=== PATIENT | female | born 1955 | race Caucasian/White ===

== ENCOUNTER → 2019-09-17 07:07 | Outpatient (CLI) | payer OTHER, SELFPAY ==
--- NOTE | ~2019-09-17 | MM_ITS ---
EXAMINATION: MM screening bessy BI w jorge alberto HISTORY: Screening mammogram TECHNIQUE: Craniocaudal and mediolateral oblique 3-D tomosynthesis images were obtained and synthetic 2-D images were generated. CAD analysis was submitted and interpreted. COMPARISON: bilateral diagnostic digital mammogram 04/03/2013 bilateral digital screening mammogram BREAST PARENCHYMAL COMPOSITION: There are scattered areas of fibroglandular density. FINDINGS: 3.7 x 7 mm stable circumscribed opacity in the upper outer quadrant of the right breast pos teriorly, likely a benign intramammary lymph node. 3.5 x 4.9 mm stable circumscribed low-density opacity in the posterior aspect of the upper outer quad rant of the left breast, likely a benign intramammary lymph node as well. There is no evidence of suspicious mass, calcification, or architectural distortion to suggest malign paco in either breast. There has been no suspicious interval change. IMPRESSION: 1. No mammographic evidence of malignancy. 2. Recommend routine screening mammography in one year. BI-RADS Category 2: Benign finding(s). Reviewed, dictated and finalized at location A. KO KOHANGA REO
== END ==
PROVIDERS: Visit Provider Family Medicine Adolescent Medicine
DX: Z12.31 Encounter for screening mammogram for malignant neoplasm of breast (principal)
CPT/HCPCS: 77063; 77067

== ENCOUNTER 2020-09-18 10:42 | Outpatient (CLI) | payer OTHER, SELFPAY | END 2020-09-18 10:43 | disposition home or self-care (01) | LOC: ANHCOVIDVC 10:43 | DX: Z23 Encounter for immunization (principal) | CPT/HCPCS: 0001A; 91300 ==

== ENCOUNTER 2020-10-09 10:41 | Outpatient (CLI) | payer OTHER, SELFPAY | END 2020-10-09 10:42 | disposition home or self-care (01) | LOC: ANHCOVIDVC 10:41 | DX: Z23 Encounter for immunization (principal) | CPT/HCPCS: 0002A; 91300 ==

== ENCOUNTER 2021-03-31 02:03 | Day surgery (SDC) | payer OTHER, SELFPAY ==
[2021-03-23 14:03] VITALS: BMI 39.7
--- NOTE | 2021-03-30 12:22 | WPDANESEPPF ---
Anes - Initial Pre Proc Eval Procedure: Operation Date: 03/31/21 08:30 Proposed Procedures p Screening Colonoscopy - Sam Delacruz MD Date/Time: 03/30/21 12:22 Surgeon: Sam Delacruz MD Pre Op Diagnosis: neoplasm screening Z12.11 Patient Data Age: 65 Gender: F Height: 1.63 m Weight: 105 kg Allergies Allergy/AdvReac Type Severity Reaction Status Date / Time codeine Allergy Unknown hives Verified 03/31/21 07:47 Sulfa (Sulfonamide Allergy Unknown Hives Verified 03/31/21 07:47 Antibiotics) Home Medications Medication Instructions Recorded Confirmed Type fenofibrate 160 mg tablet 160 mg PO DAILY 02/18/21 03/23/21 History fluoxetine 10 mg capsule 10 mg PO DAILY 02/18/21 03/23/21 History lisinopril 10 mg tablet 10 mg PO DAILY 02/18/21 03/23/21 History Patient hx anesthesia problems: none Family hx anesthesia problems: none PMFSH Past Medical History Medical History (Updated 03/31/21 @ 08:15 by Sam Delacruz MD) Asthma Colon cancer screening GERD (gastroesophageal reflux disease) Hyperlipidemia Hypertension Family History Family History Father Alcoholism Diabetes mellitus Hypertension Mother Hypertension Depression Cerebrovascular accident Thyroid disorder Other Asthma Grandparent FHx: kidney cancer Social History Social History Smoking status: Never smoker Alcohol intake: current Alcohol use details: 3 Substance use: never Substance use type: does not use Living arrangements: with family Spiritual care concerns: No Anes - Eval Final PreProcedure Day of Procedure 03/30/21 12:22 Patient weight: obese Heart: regular rate and rhythm Lungs: clear to auscultation and normal air movement Airway: Mallampati scale class II Neurological: alert and oriented Last oral intake: >/= 8 hours ASA classification: III Emergent: no Anesthetic plan: proceed Anesthesia type and monitoring: general GIVS and standard monitoring Informed Consent: The patient's anesthetic plan and its attendant risks and benefits were discussed with the patient/family/POA. Questions were solicited and answers provided to the satisfaction of the patient/family/POA.
[2021-03-31 07:48] VITALS: BP 149/79; PULSE 78; RESP 14; TEMP 36.1; O2SAT 94; BMI 38.4
[2021-03-31] MEDS: LACTATED RINGERS 1,000 ML 150 ML IV CONT (08:02)
--- NOTE | 2021-03-31 08:15 | PM.HPGS ---
History of Present Illness History of Present Illness Consent: Risks, benefits, and alternatives have been discussed and questions answered. Patient agrees to proceed with procedure. Chief complaint: neoplasm screening Z12.11 Narrative: Layla Walter is a 65 year old female here for first screening colonoscopy Review of Systems Constitutional: Constitutional: Denies headache(s) and Denies weakness Eyes: Eyes: Denies blurry vision ENT: Reports Normal hearing present, Denies headache(s) and Denies neck pain Cardiovascular: Cardiovascular: Denies chest pain and Denies dyspnea Respiratory: Respiratory: Denies dyspnea Gastrointestinal: Gastrointestinal: Reports no additional gastrointestinal complaints Genitourinary: Genitourinary: Denies dysuria Musculoskeletal: Musculoskeletal: Denies neck pain Integumentary/Breasts: Skin/Breast: Denies dry skin Neurologic: Reports Normal hearing present, Denies headache(s) and Denies weakness Psychiatric: Psychiatric: Denies anxiety Endocrine: Endocrine: Denies change in body appearance Hematologic/Lymphatic: Hematologic/Lymphatic: Denies easy bleeding Allergic/Immunologic: Allergic/Immunologic: Denies urticaria PMFSH Past Medical History Medical History (Updated 03/31/21 @ 08:15 by Sam Delacruz MD) Asthma Colon cancer screening GERD (gastroesophageal reflux disease) Hyperlipidemia Hypertension Family History Family History Father Alcoholism Diabetes mellitus Hypertension Mother Hypertension Depression Cerebrovascular accident Thyroid disorder Other Asthma Grandparent FHx: kidney cancer Social History Social History Smoking status: Never smoker Alcohol intake: current Alcohol use details: 3 Substance use: never Substance use type: does not use Living arrangements: with family Spiritual care concerns: No Meds Home Medications and Allergies Home Medications Medication Instructions Recorded Confirmed Type fenofibrate 160 mg tablet 160 mg PO DAILY 02/18/21 03/23/21 History fluoxetine 10 mg capsule 10 mg PO DAILY 02/18/21 03/23/21 History lisinopril 10 mg tablet 10 mg PO DAILY 02/18/21 03/23/21 History Allergies Allergy/AdvReac Type Severity Reaction Status Date / Time codeine Allergy Unknown hives Verified 03/31/21 07:47 Sulfa (Sulfonamide Allergy Unknown Hives Verified 03/31/21 07:47 Antibiotics) Vital Signs Vital Signs - 24 hr 03/31/21 07:48 Temperature 97 F L Pulse Rate 78 Respiratory Rate 14 Blood Pressure 149/79 H Pulse Oximetry 94 Exam Const: General: comfortable and no acute distress HENMT: General nose exam: Normal nares present Eyes: General: appearance normal, both eyes and all related structures Neck: Neck: no JVD Resp: Auscultation: clear to auscultation bilaterally Cardio: Rate: regular rate Rhythm: regular rhythm GI: Inspection: non-distended GI Palp: Yes Soft to palpation Skin: General skin exam: normal color Neuro: General: gait normal Speech: normal speech Extrem: General: normal to inspection Psych: Mental Status: mental status grossly normal Assessment and Plan Assessment and plan (1) Colon cancer screening: Code(s): Z12.11 - Encounter for screening for malignant neoplasm of colon Status: Acute Assessment and Plan: colonoscopy
[2021-03-31 08:39] VITALS: BP 124/75; PULSE 65; RESP 21; O2SAT 96
[2021-03-31 08:49] VITALS: BP 135/85; PULSE 70; RESP 20; O2SAT 99
[2021-03-31 08:59] VITALS: BP 131/79; PULSE 63; RESP 18; O2SAT 98
== END 2021-03-31 09:08 | disposition home or self-care (01) ==
PROVIDERS: PCP Family Medicine Adolescent Medicine; Visit Provider Internal Medicine Gastroenterology
PROC: 0DJD8ZZ Inspection of Lower Intestinal Tract, Via Natural or Artificial Opening Endoscopic (ICD-10-PCS; CPT 45378; principal; 2021-03-31 08:30)
DX: Z12.11 Encounter for screening for malignant neoplasm of colon (principal); D12.0 Benign neoplasm of cecum; K57.30 Diverticulosis of large intestine without perforation or abscess without bleeding; K64.8 Other hemorrhoids; I10 Essential (primary) hypertension; E78.5 Hyperlipidemia, unspecified; J45.909 Unspecified asthma, uncomplicated; K21.9 Gastro-esophageal reflux disease without esophagitis; E66.9 Obesity, unspecified; Z68.38 Body mass index [BMI] 38.0-38.9, adult
CPT/HCPCS: 45380; 88305; J2704; J7120

== ENCOUNTER → 2021-05-28 15:16 | Outpatient (CLI) | payer OTHER, SELFPAY ==
--- NOTE | ~2021-05-28 | MM_ITS ---
EXAMINATION: MM screening bessy BI w jorge alberto HISTORY: Screening mammogram TECHNIQUE: Craniocaudal and mediolateral oblique 3-D tomosynthesis images were obtained and synthetic 2-D images were generated. CAD analysis was submitted and interpreted. COMPARISON: 09/17/2019, 04/05/2013, 10/01/2012 bilateral mammogram examinations BREAST PARENCHYMAL COMPOSITION: There are scattered areas of fibroglandular density. FINDINGS: There are bilateral scattered benign calcifications. There is no evidence of suspicious mas s, calcification, or architectural distortion to suggest malignancy in either breast. There has been no suspicious interval change. IMPRESSION: 1. No mammographic evidence of malignancy. 2. Recommend routine screening mammography in one year. BI-RADS Category 2: Benign finding(s). Reviewed, dictated and finalized at location A. NCILIATION CLERK
== END ==
PROVIDERS: PCP Family Medicine Adolescent Medicine; Visit Provider Family Medicine Adolescent Medicine
DX: Z12.31 Encounter for screening mammogram for malignant neoplasm of breast (principal)
CPT/HCPCS: 77063; 77067

== ENCOUNTER 2024-12-11 11:15 | Outpatient (CLI) | payer OTHER, MEDICARE, SELFPAY ==
--- NOTE | ~2024-12-11 | XR_ITS ---
Left Knee Technique: AP, lateral, and sunrise views were obtained. Clinical History: Pain Findings: No fracture or dislocation is seen. There is medial compartment narrowing. There is mild tr icompartmental osteophyte formation. Soft tissues are unremarkable. No joint effusion is seen. Impression: Degenerative change, as detailed above. Reviewed, dictated and finalized at location M. Impression: Degenerative change, as detailed above.
--- OUTSIDE RECORDS SUMMARY | 2024-12-11 11:29 | XMS_ITS | Referral Summary ---
Author Organization [facility] [address] Address [address] [place] [address] Care Team Providers Care Balance Truer Name Role Phone Jong Hillman MD Primary Care Prov ider Allergies Active Allergy Reactions Criticality Noted Date Comments Codeine Anaphylaxis High 08/28/2019 Sulfa (Sulfonamide Antibiotics) Hives Medium 08/17 Social History Tobacco Use Types Packs/Day Years Used Date Smoking Tobacco: Never Assessed Personal Safety Answer Date Recorded Getting School Help Needed Not on file 09/30 Comments Unknown Sex and Gender Information Value Date Recorded Sex Assigned at Not on file 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 Care Teams Balance Truer Relationship Specialty Start Date End Date Jong Hillman MD [address] [place] [address] PCP - General Family Medicine 07/23/19
--- OUTSIDE RECORDS SUMMARY | 2024-12-11 11:29 | XMS_ITS | Clinical Summary ---
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
[2024-12-11 19:31] LABS: Hematocrit 45.8 % (37.0-47.0); Hemoglobin 14.1 g/dL (12.0-15.0); Mean Corpuscular HGB Conc 30.8 g/dl (32-36); Mean Corpuscular Hemoglobin 29.7 pg (26-34); Mean Corpuscular Volume 96.6 fl (80-100); Mean Platelet Volume 10.2 fl (7.4-10.4); Platelet Count Result 385 k/mm3 (150-375); Red Blood Count 4.74 M/mm3 (4.2-5.4); Red Cell Distribution Width 13.8 % (11.5-14.5); White Blood Count 7.9 K/mm3 (4.5-10.0)
[2024-12-11 19:48] LABS: Alanine Aminotransferase 21 U/L (6-35); Albumin Level 4.4 g/dL (3.5-5.1); Alkaline Phosphatase 50 U/L (38-126); Anion Gap 7 mmol/L (4-12); Aspartate Amino Transferase 66 U/L (14-36); Bilirubin,Total 0.5 mg/dL (0.2-1.3); Blood Urea Nitrogen 23 mg/dL (7-17); Calcium 9.7 mg/dL (8.4-10.2); Carbon Dioxide 27 mmol/L (22-30); Chloride 103 mmol/L (98-107); Cholesterol 209 mg/dL (0-200); Estimated Glomerular Filt Rate 50; Glucose 85 mg/dL (65-110); HDL Direct 57 mg/dL; Potassium 4.8 mmol/L (3.4-5.0); Sodium 137 mmol/L (137-145); Triglycerides 169 mg/dL (<150)
[2024-12-11 19:59] LABS: LDL Cholesterol Direct 95 mg/dL
[2024-12-11 20:47] LABS: Hemoglobin A1C 5.6 % (<5.7)
== END 2024-12-11 11:16 | disposition home or self-care (01) ==
PROVIDERS: PCP Nurse Practitioner Adult Health; Visit Provider Nurse Practitioner Adult Health
DX: R73.01 Impaired fasting glucose (principal); I10 Essential (primary) hypertension; M25.562 Pain in left knee; L65.9 Nonscarring hair loss, unspecified
CPT/HCPCS: 36415; 73562; 80053; 80061; 82607; 83036; 83735; 84443; 85027

== ENCOUNTER 2025-05-07 09:00 | Outpatient (RCR) | payer MEDICARE, SELFPAY ==
--- NOTE | 2025-03-11 16:14 | OPREHPOC ---
Outpatient Therapy Plan of Care This is a Multidisciplinary Plan of Care that may contain components documented by all disciplines (PT, OT, and ST.) PT Problem 1 PT Problem #1 Knowledge Deficit PT Goal 1 Goal / Goal Update Pt will demo good understanding of diagnosis and prognosis, perform HEPs indep. Target Visit 12 PT Problem 2 PT Problem #2 Pain PT Goal 1 Goal / Goal Update Pt will report 1-2/10 at worst when ambulating on various surfaces without AD. Target Visit 12 PT Problem 3 PT Problem #3 Impaired Strength PT Goal 1 Goal / Goal Update Pt will demo 4/5 or more to all tested muscles of BLE. Target Visit 12 PT Problem 4 PT Problem #4 Impaired Gait PT Goal 1 Goal / Goal Update Pt will demo normalized gait pattern without limping or compensatory postural changes to improve safety with ambulation for >300ft. Target Visit 12
--- NOTE | 2025-03-11 16:14 | PTOPEVAL1 ---
Assessment and note entered by Leta Lopez, PT Evaluation Information Assessment Status Evaluation Diagnosis M17.12 ICD-10 Condition Codes (PT) Pain in right hip M25.551,Pain in left hip M25.552 ,Pain in right knee M25.561,Pain in left knee M25. 562,Difficulty Walking R26.2,Abnormalities of gait and mobility R26.9,Weakness R53.1 Subjective Information Pt reports that she fell 5 yrs ago at work and had been feeling L knee pain since then. States pain limits her ability to walk around, rated as 1/10 at best and 4/10 at worst, aggravated by standing and walking for long periods of time. States also feels fatigue/exhaustion from limping around (when walking long distances and stairs) She uses a SC every now and then but not consistently, no stairs at home. Pt reports wanting to avoid surgery. Reported Pain Level Pain Score 1: Self Report Additional Pain Score Comments feels sharp pain with knee extension or rotation Assessment PT Clinical Summary Pt presents to therapy with c/o B knee pain L > R. Demos decreased ROM, weakness, postural deformity resulting to balance deficits and gait impairments. An x-ray to the L knee taken last showed medial compartment narrowing and mild tricompartmental osteophyte formation. The degenerative changes to the knee joint and muscle imbalance greatly contributed to the pain level. Pt will benefit from skilled PT to improve flexibility, strength and stability to bilateral knees and proximal muscles to improve indep functional mobility and ambulation safety. Plan of Care Interventions Check Out for Orthotic/Prosthetic,Electrical Stimulation,Gait Training,Hot Pack/Cold Pack, Manual Therapy,Neuro Re-education,Patient/ Caregiver Education,Therapeutic Activities, Therapeutic Exercise,Ultrasound PT Services Indicated Yes Treatment Frequency and 1-2x/week x 12 visits Duration These treatments will address the objective and functional deficits as defined above. The patient will be advanced safely and appropriately in order for the patient to progress towards his/her prior level of function. Additional exercises will be introduced and as well as a comprehensive home exercise program upon discharge, if needed, ?to ensure carryover of functional gains achieved in the clinic. This treatment plan has been reviewed and agreement upon by the patient.
--- NOTE | 2025-05-07 11:47 | OPREHPOC ---
Outpatient Therapy Plan of Care This is a Multidisciplinary Plan of Care that may contain components documented by all disciplines (PT, OT, and ST.) PT Problem 1 PT Problem #1 Knowledge Deficit PT Goal 1 Goal / Goal Update Pt will demo good understanding of diagnosis and prognosis, perform HEPs indep. - met *new goal 05/07/2025: Pt will perform specific exercises at the wellness gym to improve overall fitness that is low impact to the joints. Target Visit 10 PT Problem 2 PT Problem #2 Pain PT Goal 1 Goal / Goal Update Pt will report 1-2/10 at worst when ambulating on various surfaces without AD. - cont with this goal Target Visit 10 Progress Partially Met PT Problem 3 PT Problem #3 Impaired Strength PT Goal 1 Goal / Goal Update Pt will demo 4/5 or more to all tested muscles of BLE. -met *new goal 05/07/2025: Pt will perform sit to stand x 10 in 15 seconds or less without BUE support and without pain and discomfort. Target Visit 10 PT Problem 4 PT Problem #4 Impaired Gait PT Goal 1 Goal / Goal Update Pt will demo normalized gait pattern without limping or compensatory postural changes to improve safety with ambulation for >300ft. updated 05/07/2025: Pt will demo normalized gait pattern with equal weight distribution and stride length bilaterally without limping or compensatory postural changes using appropriate orthosis to improve safety with ambulation for >350ft. Target Visit 10
--- NOTE | 2025-05-07 11:47 | PTOPPROG ---
Assessment and note entered by Leta Lopez, PT Re-evaluation Information Assessment Status Progress Diagnosis M17.12 ICD-10 Condition Codes (PT) Pain in right hip M25.551,Pain in left hip M25.552 ,Pain in right knee M25.561,Pain in left knee M25. 562,Difficulty Walking R26.2,Abnormalities of gait and mobility R26.9,Weakness R53.1 Subjective Information Pt reports that she fell 5 yrs ago at work and had been feeling L knee pain since then. States pain limits her ability to walk around, rated as 1/10 at best and 4/10 at worst, aggravated by standing and walking for long periods of time. States also feels fatigue/exhaustion from limping around (when walking long distances and stairs) She uses a SC every now and then but not consistently, no stairs at home. Pt reports wanting to avoid surgery. Assessment PT Clinical Summary Pt received 13 treatment sessions and demo good progress with ROM and ambulation tolerance. However, she still lack the strength and stability of bilateral knees which continue to impact her ability to perform functional mobility and perform repeated sit to stand that is required at her workplace. She will benefit from continuing the current plan of care with focus on improving strength and flexibility, fitting and application of appropriate orthosis, incorporating aquatics therapy to reduce impact and pain. Plan of Care Interventions Check Out for Orthotic/Prosthetic,Electrical Stimulation,Gait Training,Hot Pack/Cold Pack, Manual Therapy,Neuro Re-education,Patient/ Caregiver Education,Therapeutic Activities, Therapeutic Exercise,Ultrasound PT Services Indicated Yes Treatment Frequency and 2x/wk x 10 visits Duration These treatments will address the objective and functional deficits as defined above. The patient will be advanced safely and appropriately in order for the patient to progress towards his/her prior level of function. Additional exercises will be introduced and as well as a comprehensive home exercise program upon discharge, if needed, ?to ensure carryover of functional gains achieved in the clinic. This treatment plan has been reviewed and agreement upon by the patient.
== END 2025-06-09 23:59 | disposition home or self-care (01) ==
LOC: ANHPT 09:00
PROVIDERS: PCP Nurse Practitioner Adult Health; Visit Provider Orthopaedic Surgery
DX: M17.12 Unilateral primary osteoarthritis, left knee (principal)
CPT/HCPCS: 97014; 97035; 97110; 97140; 97161; 97530; 97750; G0283

== ENCOUNTER 2025-06-13 11:40 | Outpatient (CLI) | payer MEDICARE, SELFPAY ==
--- NOTE | ~2025-06-13 | MM_ITS ---
EXAMINATION: MM screening bessy BI w jorge alberto HISTORY: Screening. TECHNIQUE: Craniocaudal and mediolateral oblique 3-D tomosynthesis images were obtained and synthetic 2-D images were generated. CAD analysis was submitted and interpreted. COMPARISON: 2020 and 2019 BREAST PARENCHYMAL COMPOSITION: Not Dense: There are scattered areas of fibroglandular tissue. FINDINGS: No suspicious masses are seen. There are no suspicious calcifications. No unexplained architectural distortion is seen. There are no skin or nipple abnormalities identified. There is no adenopathy seen on the images submitted. IMPRESSION: No mammographic evidence to suggest malignancy is seen. The patient may return to screening mammography as per ACR guidelines. BI-RADS: 1 - Negative. Reviewed, dictated and finalized at location A. CTOR OF FINANCE
== END 2025-06-13 11:41 | disposition home or self-care (01) ==
LOC: MICIMG 11:41
PROVIDERS: PCP Nurse Practitioner Adult Health; Visit Provider Nurse Practitioner Adult Health
DX: Z12.31 Encounter for screening mammogram for malignant neoplasm of breast (principal)
CPT/HCPCS: 77063; 77067

== ENCOUNTER 2025-06-19 09:51 | Outpatient (CLI) | payer MEDICARE, SELFPAY ==
--- OUTSIDE RECORDS SUMMARY | 2025-06-19 10:46 | XMS_ITS | Clinical Summary ---
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
[2025-06-19 18:28] LABS: Alanine Aminotransferase 18 U/L (6-35); Albumin Level 4.2 g/dL (3.5-5.1); Alkaline Phosphatase 52 U/L (38-126); Anion Gap 4 mmol/L (4-12); Aspartate Amino Transferase 94 U/L (14-36); Bilirubin,Total 0.4 mg/dL (0.2-1.3); Blood Urea Nitrogen 27 mg/dL (7-17); Calcium 9.5 mg/dL (8.4-10.2); Carbon Dioxide 26 mmol/L (22-30); Chloride 106 mmol/L (98-107); Cholesterol 175 mg/dL (0-200); Estimated Glomerular Filt Rate 48; Glucose 85 mg/dL (65-110); HDL Direct 48 mg/dL; Potassium 4.4 mmol/L (3.4-5.0); Sodium 136 mmol/L (137-145); Total Protein 7.6 g/dL (6.3-8.2); Triglycerides 130 mg/dL (<150)
[2025-06-19 18:44] LABS: Free T4 Free Thyroxine 1.13 ng/dL (0.78-2.19)
[2025-06-19 19:04] LABS: Thyroid Stimulating Hormone 1.660 uIU/mL (0.465-4.680)
[2025-06-19 19:23] LABS: Vitamin B12 940.0 pg/mL (239-931)
== END 2025-06-19 09:52 | disposition home or self-care (01) ==
LOC: ANHBWCLAB 09:52
PROVIDERS: PCP Nurse Practitioner Adult Health; Visit Provider Nurse Practitioner Adult Health
DX: E78.5 Hyperlipidemia, unspecified (principal); E53.8 Deficiency of other specified B group vitamins; L65.9 Nonscarring hair loss, unspecified
CPT/HCPCS: 36415; 80053; 80061; 82607; 84439; 84443

== ENCOUNTER 2025-06-30 09:05 | Outpatient (CLI) | payer MEDICARE, SELFPAY ==
--- NOTE | ~2025-06-30 | XR_ITS ---
EXAMINATION: XR chest 2V, 06/30/2025 9:07 BILINGUAL RECEPTIONIST HISTORY: cough, wheezing, sob x 3 days COMPARISON: No comparisons available. Technique: 2 views obtained. Findings: The lungs are clear, no effusion. No pneumothorax. Heart is normal size. Mediastinal and hilar contours are within normal limits. Bony thorax no acute abnormality. Impression: No acute cardiopulmonary abnormality. Reviewed, dictated and finalized at location P. NGUAL RECEPTIONIST Impression: No acute cardiopulmonary abnormality.
== END 2025-06-30 09:06 | disposition home or self-care (01) ==
PROVIDERS: PCP Nurse Practitioner Adult Health; Visit Provider Nurse Practitioner Adult Health
DX: R06.00 Dyspnea, unspecified (principal); R05.9 Cough, unspecified
CPT/HCPCS: 71046